=== PATIENT | female | born 1980 | race Caucasian/White ===

== ENCOUNTER 2018-10-05 20:36 | Inpatient (IN) | payer OTHER ==
[2018-10-05] MEDS: NS 1,000 ML IV ×4 (20:59→23:13)
[2018-10-05] MEDS: MORPHINE 2 MG/ML 1ML SYRINGE (J2270) IV ×4 (21:08→23:14)
[2018-10-05 21:09] LABS: HEMATOCRIT 26.1 % (36.0-47.0); HEMOGLOBIN 8.7 g/dl (12.0-15.5); MEAN CORPUSCULAR HEMOGLOBIN 23.4 pg (27.0-33.0); MEAN CORPUSCULAR HGB CONC 33.3 g/dl (32.0-36.5); MEAN CORPUSCULAR VOLUME 70.2 fl (80.0-96.0); PLATELET COUNT, AUTOMATED 216 10^3/uL (150-450); RED BLOOD COUNT 3.72 10^6/uL (4.00-5.40); RED CELL DISTRIBUTION WIDTH 20.2 % (11.5-14.5)
[2018-10-05 21:21] LABS: ADD MANUAL DIFFER YES; DIFF SLIDE NUMBER 404; POS COUNT POS FLAG; POSITIVE DIFF POS FLAG; POSITIVE MORPH POS FLAG; WHITE BLOOD COUNT 18.5 10^3/uL (4.0-10.0)
[2018-10-05 21:27] LABS: ANION GAP 8 MEQ/L (8-16); BLOOD UREA NITROGEN 13 MG/DL (7-18); CALCIUM LEVEL 8.8 MG/DL (8.5-10.1); CARBON DIOXIDE LEVEL 25 MEQ/L (21-32); CHLORIDE LEVEL 106 MEQ/L (98-107); CK-MB VALUE MASS < 1.0 NG/ML (<3.6); CPK CREATINE PHOSPHOKINASE 55 U/L (26-192); CREATININE FOR GFR 0.62 MG/DL (0.55-1.30); GLOMERULAR FILTRATION RATE > 60.0 (>60); GLUCOSE, FASTING 110 MG/DL (70-100); MB/CK RELATIVE INDEX 1.82 (< OR =4); POTASSIUM SERUM 3.7 MEQ/L (3.5-5.1); SODIUM LEVEL 139 MEQ/L (136-145); TROPONIN I < 0.02 NG/ML (< 0.10)
[2018-10-05 21:40] LABS: ATYPICAL LYMPH 2 % (0-5); BASOPHILS 2 % (0-4); EOSINOPHILS 3 % (0-5); LYMPHOCYTES 44 % (16-52); METAMYELOCYTES 1 % (0-0); MONOCYTES 11 % (0-8); NEUTROPHILS 37 % (35-75); PLATELET ESTIMATE NORMAL (NORMAL)
[2018-10-05 21:41] LABS: ANISOCYTOSIS 2+
[2018-10-05 21:42] LABS: POLYCHROMASIA 1+
[2018-10-05 21:44] LABS: MICROCYTOSIS 2+
[2018-10-05 21:51] LABS: SCHISTOCYTES 1+
[2018-10-05 22:27] LABS: ALBUMIN 3.9 GM/DL (3.2-5.2); ALBUMIN/GLOBULIN RATIO 0.93 (1.00-1.93); ALKALINE PHOSPHATASE 98 U/L (45-117); ALT/SGPT 36 U/L (12-78); AST/SGOT 69 U/L (7-37); BILIRUBIN,DIRECT 0.4 MG/DL (0.0-0.2); BILIRUBIN,TOTAL 1.2 MG/DL (0.2-1.0); LDH LACTATE DEHYDROGENASE 710 U/L (84-246); TOTAL PROTEIN 8.1 GM/DL (6.4-8.2)
[2018-10-05 22:33] LABS: LACTIC ACID SEPSIS PROTOCOL 0.6 MMOL/L (0.4-2.0)
[2018-10-05] MEDS ORDERED: ISOVUE-370 76% 100ML VIAL (Q9967) As Ordered (22:46)
[2018-10-06] MEDS: MORPHINE 2 MG/ML 1ML SYRINGE (J2270) IV (00:44)
[2018-10-06 01:19] LABS: FERRITIN 167 NG/ML (8-252); IRON (FE) 184 UG/DL (50-170); TOTAL IRON BINDING CAPACITY 263 UG/DL (250-450)
[2018-10-06] MEDS: PERCOCET 5MG/325MG TAB PO ×4 (02:12→21:13)
[2018-10-06] MEDS: NS 1,000 ML IV ×3 (02:13→18:00)
[2018-10-06] MEDS: ONDANSETRON 4MG/2ML VIAL (J2405) IV ×2 (02:33→11:41)
[2018-10-06] MEDS: MORPHINE 4 MG/ML 1ML VIAL/SYRINGE (J2270) IV ×4 (03:23→11:36)
[2018-10-06 05:55] LABS: HEMATOCRIT 23.4 % (36.0-47.0); HEMOGLOBIN 7.8 g/dl (12.0-15.5); MEAN CORPUSCULAR HEMOGLOBIN 23.5 pg (27.0-33.0); MEAN CORPUSCULAR HGB CONC 33.3 g/dl (32.0-36.5); MEAN CORPUSCULAR VOLUME 70.5 fl (80.0-96.0); PLATELET COUNT, AUTOMATED 206 10^3/uL (150-450); RED BLOOD COUNT 3.32 10^6/uL (4.00-5.40); RETIC HEMOGLOBIN EQUIVALENT 24.6 pg (24-36); RETICULOCYTE # 363.2 10^9/L (17-77); RETICULOCYTE % 10.9 % (0.5-1.5); WHITE BLOOD COUNT 22.3 10^3/uL (4.0-10.0)
[2018-10-06 06:02] LABS: INR 1.05; PROTHROMBIN TIME 13.8 SECONDS (12.1-14.4)
[2018-10-06 06:23] LABS: POS COUNT POS FLAG; POSITIVE MORPH POS FLAG
[2018-10-06 06:24] LABS: ALBUMIN 3.6 GM/DL (3.2-5.2); ALBUMIN/GLOBULIN RATIO 0.97 (1.00-1.93); ALKALINE PHOSPHATASE 84 U/L (45-117); ALT/SGPT 30 U/L (12-78); ANION GAP 9 MEQ/L (8-16); AST/SGOT 69 U/L (7-37); BILIRUBIN,DIRECT 0.3 MG/DL (0.0-0.2); BILIRUBIN,TOTAL 1.2 MG/DL (0.2-1.0); BLOOD UREA NITROGEN 8 MG/DL (7-18); CALCIUM LEVEL 8.3 MG/DL (8.5-10.1); CARBON DIOXIDE LEVEL 22 MEQ/L (21-32); CHLORIDE LEVEL 108 MEQ/L (98-107); CREATININE FOR GFR 0.58 MG/DL (0.55-1.30); GLOMERULAR FILTRATION RATE > 60.0 (>60); GLUCOSE, FASTING 102 MG/DL (70-100); LDH LACTATE DEHYDROGENASE 729 U/L (84-246); SODIUM LEVEL 139 MEQ/L (136-145); TOTAL PROTEIN 7.3 GM/DL (6.4-8.2)
[2018-10-06 06:26] LABS: POLYCHROMASIA 2+
[2018-10-06 06:27] LABS: SICKLE CELLS 2+
[2018-10-06 06:28] LABS: TARGET CELLS 2+
[2018-10-06 06:29] LABS: ANISOCYTOSIS 2+; MICROCYTOSIS 1+; POIKILOCYTOSIS 2+
[2018-10-06 06:30] LABS: SCHISTOCYTES 2+
[2018-10-06 06:32] LABS: PLATELET ESTIMATE NORMAL (NORMAL)
[2018-10-06 06:42] LABS: KETONE, URINE AUTO RFX NEGATIVE (NEGATIVE); NITRITE, URINE AUTO RFX NEGATIVE (NEGATIVE); RBC, URINE AUTO RFX 1 /HPF (0-3); SPECIFIC GRAVITY UR AUTO RFX 1.014 (1.002-1.035); SQUAM EPITHELIAL CELL UR AURFX 0 /HPF (0-6); WBC, URINE AUTO RFX 7 /HPF (0-3)
[2018-10-06 07:22] LABS: LEUKOCYTE ESTERASE UR AUTO RFX 1+ (NEGATIVE)
[2018-10-06] MEDS: FERROUS GLUCONATE 324 MG TAB PO (08:51)
[2018-10-06] MEDS: FOLIC ACID 1 MG TAB PO (08:51)
[2018-10-06] MEDS: DOCUSATE SODIUM 100 MG CAP PO ×2 (08:51→21:13)
[2018-10-06] MEDS: ENOXAPARIN 40 MG/0.4 ML SYRINGE (J1650) SC (08:52)
[2018-10-06 09:16] LABS: FOLATE 8.8 NG/ML; VITAMIN B12 LEVEL 461 PG/ML
[2018-10-06] MEDS ORDERED: diphenhydrAMINE 25 MG CAP PO (09:45)
[2018-10-06 10:15] LABS: HYPOCHROMASIA 1+; POIKILOCYTOSIS 1+; TARGET CELLS 2+
[2018-10-06 10:16] LABS: OVALOCYTES 1+
[2018-10-06 10:17] LABS: SICKLE CELLS 2+
[2018-10-06 12:12] LABS: HEMATOCRIT 22.4 % (36.0-47.0); HEMOGLOBIN 7.3 g/dl (12.0-15.5)
[2018-10-06 12:16] LABS: POSITIVE MORPH POS FLAG
[2018-10-07] MEDS: PERCOCET 5MG/325MG TAB PO ×3 (01:23→19:56)
[2018-10-07] MEDS: NS 1,000 ML IV ×2 (01:24→08:36)
[2018-10-07 06:06] LABS: HEMATOCRIT 21.2 % (36.0-47.0); MEAN CORPUSCULAR HEMOGLOBIN 23.6 pg (27.0-33.0); MEAN CORPUSCULAR VOLUME 71.6 fl (80.0-96.0); PLATELET COUNT, AUTOMATED 175 10^3/uL (150-450); RED BLOOD COUNT 2.96 10^6/uL (4.00-5.40); RED CELL DISTRIBUTION WIDTH 21.9 % (11.5-14.5); WHITE BLOOD COUNT 14.9 10^3/uL (4.0-10.0)
[2018-10-07 06:15] LABS: INR 1.15; PROTHROMBIN TIME 14.9 SECONDS (12.1-14.4)
[2018-10-07 06:20] LABS: POS COUNT POS FLAG; POSITIVE MORPH POS FLAG; RETIC SCAT POS FLAG
[2018-10-07 06:21] LABS: RETIC HEMOGLOBIN EQUIVALENT 20.3 pg (24-36); RETICULOCYTE # 400.4 10^9/L (17-77); RETICULOCYTE % 13.4 % (0.5-1.5)
[2018-10-07 06:23] LABS: BILIRUBIN,DIRECT 0.4 MG/DL (0.0-0.2)
[2018-10-07 06:23] LABS: LDH LACTATE DEHYDROGENASE 674 U/L (84-246)
[2018-10-07 06:29] LABS: ALBUMIN 2.6 GM/DL (3.2-5.2); ALBUMIN/GLOBULIN RATIO 0.79 (1.00-1.93); ALKALINE PHOSPHATASE 64 U/L (45-117); ALT/SGPT 27 U/L (12-78); ANION GAP 6 MEQ/L (8-16); AST/SGOT 62 U/L (7-37); BILIRUBIN,TOTAL 1.3 MG/DL (0.2-1.0); BLOOD UREA NITROGEN 4 MG/DL (7-18); C REACTIVE PROTEIN QUANTITATIV 6.92 MG/DL (0.00-0.30); CALCIUM LEVEL 7.5 MG/DL (8.5-10.1); CARBON DIOXIDE LEVEL 24 MEQ/L (21-32); CHLORIDE LEVEL 112 MEQ/L (98-107); CREATININE FOR GFR 0.56 MG/DL (0.55-1.30); GLOMERULAR FILTRATION RATE > 60.0 (>60); GLUCOSE, FASTING 92 MG/DL (70-100); POTASSIUM SERUM 3.8 MEQ/L (3.5-5.1); SODIUM LEVEL 142 MEQ/L (136-145); TOTAL PROTEIN 5.9 GM/DL (6.4-8.2)
[2018-10-07 08:06] LABS: HAPTOGLOBIN < 10 mg/dL (34-200)
[2018-10-07 08:06] LABS: TRANSFERRIN 201 mg/dL (200-370)
[2018-10-07] MEDS: ONDANSETRON 4MG/2ML VIAL (J2405) IV ×2 (08:55→14:00)
[2018-10-07] MEDS: DOCUSATE SODIUM 100 MG CAP PO ×2 (08:56→19:56)
[2018-10-07] MEDS: FERROUS GLUCONATE 324 MG TAB PO (08:56)
[2018-10-07] MEDS: FOLIC ACID 1 MG TAB PO (08:56)
[2018-10-07] MEDS: ENOXAPARIN 40 MG/0.4 ML SYRINGE (J1650) SC (08:56)
[2018-10-07] MEDS: INFLUENZA QUADRIVALENT PF VACCINE 0.5ML SYRINGE (90686) IM (08:58)
[2018-10-07] MEDS ORDERED: KETOROLAC TROMETHAMINE 10 MG TAB PO (10:15)
[2018-10-07 12:37] LABS: HEMATOCRIT 22.4 % (36.0-47.0); HEMOGLOBIN 7.6 g/dl (12.0-15.5)
[2018-10-07] MEDS: KETOROLAC 30 MG/ML VIAL (J1885) IV ×2 (14:00→21:14)
[2018-10-08] MEDS: KETOROLAC 30 MG/ML VIAL (J1885) IV (04:00)
[2018-10-08 06:16] LABS: HEMATOCRIT 21.1 % (36.0-47.0); MEAN CORPUSCULAR HEMOGLOBIN 23.3 pg (27.0-33.0); MEAN CORPUSCULAR HGB CONC 33.2 g/dl (32.0-36.5); MEAN CORPUSCULAR VOLUME 70.3 fl (80.0-96.0); PLATELET COUNT, AUTOMATED 205 10^3/uL (150-450); RED CELL DISTRIBUTION WIDTH 22.9 % (11.5-14.5); WHITE BLOOD COUNT 16.1 10^3/uL (4.0-10.0)
[2018-10-08 06:25] LABS: INR 1.11; PROTHROMBIN TIME 14.4 SECONDS (12.1-14.4)
[2018-10-08 06:33] LABS: BILIRUBIN,DIRECT 0.4 MG/DL (0.0-0.2)
[2018-10-08 06:33] LABS: LDH LACTATE DEHYDROGENASE 696 U/L (84-246)
[2018-10-08 06:34] LABS: RETIC HEMOGLOBIN EQUIVALENT 21.5 pg (24-36); RETICULOCYTE # 481.1 10^9/L (17-77); RETICULOCYTE % 15.1 % (0.5-1.5)
[2018-10-08 06:39] LABS: ALBUMIN 2.8 GM/DL (3.2-5.2); ALBUMIN/GLOBULIN RATIO 0.93 (1.00-1.93); ALKALINE PHOSPHATASE 65 U/L (45-117); ALT/SGPT 26 U/L (12-78); ANION GAP 7 MEQ/L (8-16); AST/SGOT 58 U/L (7-37); BILIRUBIN,TOTAL 1.3 MG/DL (0.2-1.0); BLOOD UREA NITROGEN 8 MG/DL (7-18); CALCIUM LEVEL 8.2 MG/DL (8.5-10.1); CARBON DIOXIDE LEVEL 25 MEQ/L (21-32); CHLORIDE LEVEL 110 MEQ/L (98-107); CREATININE FOR GFR 0.62 MG/DL (0.55-1.30); GLOMERULAR FILTRATION RATE > 60.0 (>60); GLUCOSE, FASTING 85 MG/DL (70-100); POTASSIUM SERUM 3.5 MEQ/L (3.5-5.1); SODIUM LEVEL 142 MEQ/L (136-145); TOTAL PROTEIN 5.8 GM/DL (6.4-8.2)
[2018-10-08 06:51] LABS: POS COUNT POS FLAG; POSITIVE MORPH POS FLAG
[2018-10-08 08:06] LABS: HAPTOGLOBIN < 10 mg/dL (34-200)
[2018-10-08] MEDS: FERROUS GLUCONATE 324 MG TAB PO (09:00)
[2018-10-08] MEDS: DOCUSATE SODIUM 100 MG CAP PO ×2 (09:20→20:13)
[2018-10-08] MEDS: FOLIC ACID 1 MG TAB PO (09:20)
[2018-10-08] MEDS: ENOXAPARIN 40 MG/0.4 ML SYRINGE (J1650) SC (10:13)
[2018-10-08 10:21] LABS: HEMATOCRIT 23.3 % (36.0-47.0); HEMOGLOBIN 7.6 g/dl (12.0-15.5); MEAN CORPUSCULAR HEMOGLOBIN 23.4 pg (27.0-33.0); MEAN CORPUSCULAR HGB CONC 32.6 g/dl (32.0-36.5); MEAN CORPUSCULAR VOLUME 71.7 fl (80.0-96.0); PLATELET COUNT, AUTOMATED 233 10^3/uL (150-450); RED BLOOD COUNT 3.25 10^6/uL (4.00-5.40); RED CELL DISTRIBUTION WIDTH 22.9 % (11.5-14.5); WHITE BLOOD COUNT 17.6 10^3/uL (4.0-10.0)
[2018-10-08] MEDS: ACETAMINOPHEN TAB 650MG DOSE (2X325MG) PO ×2 (10:21→15:29)
[2018-10-08 10:30] LABS: POS COUNT POS FLAG; POSITIVE MORPH POS FLAG
[2018-10-08 14:44] LABS: IMMEDIATE SPIN CROSSMATCH 1 1
[2018-10-08] MEDS: PERCOCET 5MG/325MG TAB PO (20:13)
[2018-10-09] MEDS: KETOROLAC 30 MG/ML VIAL (J1885) IV (02:58)
[2018-10-09 06:05] LABS: INR 1.07
[2018-10-09 06:07] LABS: HEMATOCRIT 26.1 % (36.0-47.0); HEMOGLOBIN 8.9 g/dl (12.0-15.5); MEAN CORPUSCULAR HGB CONC 34.1 g/dl (32.0-36.5); MEAN CORPUSCULAR VOLUME 70.4 fl (80.0-96.0); PLATELET COUNT, AUTOMATED 278 10^3/uL (150-450); RED BLOOD COUNT 3.71 10^6/uL (4.00-5.40); RED CELL DISTRIBUTION WIDTH 20.6 % (11.5-14.5); RETIC HEMOGLOBIN EQUIVALENT 21.5 pg (24-36); RETICULOCYTE # 575.8 10^9/L (17-77); RETICULOCYTE % 15.5 % (0.5-1.5); WHITE BLOOD COUNT 14.7 10^3/uL (4.0-10.0)
[2018-10-09 06:08] LABS: POS COUNT POS FLAG; POSITIVE MORPH POS FLAG
[2018-10-09 06:20] LABS: ALBUMIN 2.9 GM/DL (3.2-5.2); ALBUMIN/GLOBULIN RATIO 0.81 (1.00-1.93); ALKALINE PHOSPHATASE 73 U/L (45-117); ALT/SGPT 30 U/L (12-78); ANION GAP 6 MEQ/L (8-16); AST/SGOT 56 U/L (7-37); BILIRUBIN,DIRECT 0.3 MG/DL (0.0-0.2); BILIRUBIN,TOTAL 1.1 MG/DL (0.2-1.0); BLOOD UREA NITROGEN 6 MG/DL (7-18); C REACTIVE PROTEIN QUANTITATIV 4.76 MG/DL (0.00-0.30); CALCIUM LEVEL 8.5 MG/DL (8.5-10.1); CARBON DIOXIDE LEVEL 25 MEQ/L (21-32); CHLORIDE LEVEL 110 MEQ/L (98-107); CREATININE FOR GFR 0.62 MG/DL (0.55-1.30); GLOMERULAR FILTRATION RATE > 60.0 (>60); GLUCOSE, FASTING 92 MG/DL (70-100); LDH LACTATE DEHYDROGENASE 677 U/L (84-246); POTASSIUM SERUM 3.4 MEQ/L (3.5-5.1); SODIUM LEVEL 141 MEQ/L (136-145); TOTAL PROTEIN 6.5 GM/DL (6.4-8.2)
[2018-10-09 08:06] LABS: HAPTOGLOBIN < 10 mg/dL (34-200)
[2018-10-09] MEDS: DOCUSATE SODIUM 100 MG CAP PO (08:15)
[2018-10-09] MEDS: FOLIC ACID 1 MG TAB PO (08:15)
[2018-10-09] MEDS: ENOXAPARIN 40 MG/0.4 ML SYRINGE (J1650) SC (08:15)
[2018-10-09] MEDS: POTASSIUM CHLORIDE 10 MEQ SR TABLET PO (10:01)
[2018-10-10 08:06] LABS: HAPTOGLOBIN < 10 mg/dL (34-200)
== END 2018-10-09 13:42 | disposition home or self-care (01) | DRG 812 ==
LOC: M ED INP 10-06 00:36 → M ED 20:36 → M MSPAV 10-06 01:52
PROC: 30233N1 Transfusion of Nonautologous Red Blood Cells into Peripheral Vein, Percutaneous Approach (ICD-10-PCS; principal; 2018-10-08)
DX: D57.411 Sickle-cell thalassemia, unspecified, with acute chest syndrome (principal); D68.2 Hereditary deficiency of other clotting factors; E83.110 Hereditary hemochromatosis; D72.829 Elevated white blood cell count, unspecified

== ENCOUNTER 2018-10-31 21:18 | Emergency (ER) | payer OTHER ==
[~2018-10-31] VITALS: Ht 160 cm; Wt 59.1 kg
[2018-10-31 21:18] VITALS: BP 131/89
[~2018-10-31 21:18] MED LIST: FOLI1TAB11 PO; IBUPOTC PO; PERC5TAB12 PO; TYLE325T5 PO
[2018-10-31] MEDS ORDERED: NS 1,000 ML IV ONE (22:30)
--- NOTE | 2018-10-31 23:40 | REPVR ---
EXAM: US Bilateral Duplex Lower Extremity Veins EXAM DATE/TIME: 10/31/2018 10:52 PM CLINICAL HISTORY: 37 years old, female; Pain; Leg, upper; Bilateral; Additional info: Pain/factor v def TECHNIQUE: Real-time duplex ultrasound of the Bilateral Lower Extremities with 2-D [place] scale, color Doppler flow and spectral waveform analysis. Complete exam focused on the bilateral lower extremity veins. COMPARISON: No relevant prior studies available. FINDINGS: Right deep veins: Unremarkable. The common femoral, femoral and popliteal veins are patent without thrombus. Normal compressibility, augmentation response and Doppler waveforms. Right superficial veins: Saphenofemoral junction is patent without thrombus. Left deep veins: Unremarkable. The common femoral, femoral and popliteal veins are patent without thrombus. Normal compressibility, augmentation response and Doppler waveforms. Left superficial veins: Saphenofemoral junction is patent without thrombus. Soft tissues: Unremarkable. IMPRESSION: No sonographic evidence of deep vein thrombosis. Electronically signed by: Jovanny Sellers On 10/31/2018 23:40:24 PM
[2018-10-31 23:42] LABS: BASO # 0.1 10^3/uL (0.0-0.2); BASO % 0.7 % (0.0-1.0); EOS # 0.2 10^3/uL (0.0-0.50); EOS % 2.1 % (0.0-3.0); HEMATOCRIT 25.7 % (36.0-47.0); HEMOGLOBIN 8.7 g/dl (12.0-15.5); LYMPH # 4.4 10^3/uL (1.5-4.5); LYMPH % 39.4 % (24.0-44.0); MEAN CORPUSCULAR HEMOGLOBIN 23.5 pg (27.0-33.0); MEAN CORPUSCULAR HGB CONC 33.9 g/dl (32.0-36.5); MEAN CORPUSCULAR VOLUME 69.5 fl (80.0-96.0); MONO # 1.2 10^3/uL (0.0-0.8); MONO % 10.4 % (0.0-5.0); NEUTROPHILS # 5.3 10^3/uL (1.8-7.7); NEUTROPHILS % 46.8 % (36.0-66.0); PLATELET COUNT, AUTOMATED 452 10^3/uL (150-450); WHITE BLOOD COUNT 11.3 10^3/uL (4.0-10.0)
[2018-11-01 00:07] LABS: BLOOD UREA NITROGEN 10 MG/DL (7-18); CARBON DIOXIDE LEVEL 26 MEQ/L (21-32); CHLORIDE LEVEL 105 MEQ/L (98-107); CREATININE FOR GFR 0.66 MG/DL (0.55-1.30); GLOMERULAR FILTRATION RATE > 60.0 (>60); GLUCOSE, FASTING 97 MG/DL (70-100); POTASSIUM SERUM 4.4 MEQ/L (3.5-5.1); SODIUM LEVEL 138 MEQ/L (136-145)
[2018-11-01 00:36] LABS: PLATELET ESTIMATE NORMAL (NORMAL)
[2018-11-01 00:37] LABS: HOWELL-JOLLY BODIES 1+
[2018-11-01 00:38] LABS: SICKLE CELLS 1+; TARGET CELLS 1+
[2018-11-01] MEDS ORDERED: KETOROLAC 30 MG/ML VIAL (J1885) IV ONE (00:45)
== END 2018-11-01 01:08 | disposition home or self-care (01) ==
LOC: M ED 21:18
DX: D56.1 Beta thalassemia (principal); D68.51 Activated protein C resistance; Z79.899 Other long term (current) drug therapy
CPT/HCPCS: 80048; 85025; 85046; 93970; 96374; 99283; J1885

== ENCOUNTER 2019-03-28 01:35 | Emergency (ER) | payer OTHER ==
[~2019-03-28] VITALS: Ht 160 cm; Wt 56.8 kg
[~2019-03-28 01:35] MED LIST changes: +ARTH650T11 PO
[2019-03-28] MEDS ORDERED: diphenhydrAMINE INJ 50MG/ML VIAL (J1200) IV ONE (02:15)
[2019-03-28] MEDS ORDERED: FAMOTIDINE IV BAG 20 MG in APPROPRIATE DILUENT 1 EA IV ONE (02:15)
[2019-03-28] MEDS ORDERED: methylPREDNISolone INJ 125 MG/2 ML VIAL (J2930) IV ONE (02:15)
[2019-03-28] MEDS ORDERED: PRED20TA PO (05:06)
[2019-03-28 05:29] VITALS: BP 96/62
== END 2019-03-28 05:31 | disposition home or self-care (01) ==
LOC: M ED 01:35
DX: R22.0 Localized swelling, mass and lump, head (principal); T78.40XA Allergy, unspecified, initial encounter; X58.XXXA Exposure to other specified factors, initial encounter; Y92.89 Other specified places as the place of occurrence of the external cause
CPT/HCPCS: 96365; 96366; 96375; 99284; J1200; J2930

== ENCOUNTER → 2020-01-07 | Outpatient (CLI) | payer OTHER ==
[~2020-01-07] MED LIST changes: -ARTH650T11 PO; +ARTH650T4 PO; +PRED20TA PO; +[UNRECOGNIZED DRUG - CODE] PO
--- NOTE | 2020-01-09 12:51 | ECHO ---
DATE OF STUDY: 01/07/2020 DATE OF : 1980 AGE: 39 GENDER: Female. HEIGHT: 63 inches. WEIGHT: 120 pounds. BODY SURFACE AREA: 1.56 meters squared OUTPATIENT REFERRING PHYSICIAN: Dr. Kiko Au INDICATION: Hereditary hemochromatosis. MEASUREMENTS 2- D Measurements: RV: 3.0 cm LV: 4.5 cm Septum: 0.9 cm Posterior wall: 0.9 cm Aortic root: 2.9 cm LA: 3.6 cm LVEF: 75% Doppler Measurements: AV: 1.7 m/s LVOT: 1.3 m/s LVOT diameter: 1.8 cm MV - E 85 A 56 EA ratio 1.5 Early mitral deceleration time: 211 ms E prime medial: 9.6 A prime medial: 7.6 E prime lateral: 9.4 Average E/E prime ratio: 8.9 PV: 0.9 m/s Pulmonary artery acceleration time: 130 ms RVSP: 28 mmHg IVC: 1.6 cm COMMENTS: Normal sinus rhythm without intraventricular conduction disturbance. M-mode and two-dimensional echocardiography was performed with pulsed, continuous wave, color flow and tissue Doppler studies. Normal left ventricular size, wall thickness and hyperkinetic wall motion. Normal left atrial size and Doppler assessment of LV diastolic function and estimated mean left atrial pressure. Normal right heart chamber sizes, wall motion and estimated pulmonary arterial pressure. Normal IVC size and collapse against an elevated central venous pressure. Normal appearing and functioning valvular structures. Normal aortic root size. No apparent intracardiac mass or pericardial effusion.
== END ==
LOC: M CARPUL 08:09
PROVIDERS: ATTEND Internal Medicine Hematology
DX: E83.110 Hereditary hemochromatosis (principal)

== ENCOUNTER → 2020-05-24 | Outpatient (CLI) | payer OTHER ==
[~2020-05-24] MED LIST changes: +AMOX500T PO; +ARTH650T11 PO; -ARTH650T4 PO
--- NOTE | 2020-06-18 11:23 | REPMRS ---
Patient History The patient states she has not had a clinical breast exam in over a year. No known family history of cancer. No Hormone Replacement Therapy Digital Woman Screen Mammo: May 24, 2020 - Exam #: [id number] Bilateral CC and MLO view(s) were taken. Technologist: Agata Ashley, Technologist No prior studies available for comparison. FINDINGS: The breast tissue is heterogeneously dense. This may lower the sensitivity of mammography. There is no evidence of dominant mass, architectural distortion, or grouped microcalcification typical of malignancy. 3-D tomosynthesis shows no additional findings. Report was delayed due to a protracted network disruption experienced by this facility. Assessment: BI-RADS/ACR category 1 mammogram. Negative Mammogram. Recommendation Routine screening mammogram of both breasts in 1 year (for women over age 40). This patient's Lifetime Breast Cancer RIsk is estimated at 13.3 %. This mammogram was interpreted with the aid of an FDA-approved computer-aided dectection system. Electronically Signed By: Nate Mills MD 06/18/20 [id number]
== END ==
LOC: M WHC 16:38
PROVIDERS: ATTEND Nurse Practitioner Primary Care
DX: Z12.31 Encounter for screening mammogram for malignant neoplasm of breast (principal)